=== PATIENT | female | born 1960 | race American Indian/Alaskan Native ===

== ENCOUNTER 2021-10-02 09:35 | Emergency (ER) | payer MEDICAID, OTHER ==
[2021-10-02 10:55] LABS: CORONAVIRUS COVID-19 NAA POSITIVE (NEGATIVE)
== END 2021-10-02 10:59 | disposition home or self-care (01) ==
LOC: DL.ED 09:35
DX: Z53.21 Procedure and treatment not carried out due to patient leaving prior to being seen by health care provider (principal)
CPT/HCPCS: 0240U

== ENCOUNTER 2024-02-16 08:25 | Day surgery (SDC) | payer MEDICAID, OTHER ==
[2024-02-16] MEDS: Lactated Ringers 1,000 ML IV SCH (09:05)
[2024-02-16] MEDS ORDERED: Betamethasone Acetate/Betamethasone Sod Phosphate 6 MG/1 ML MDV ONE (09:14)
[2024-02-16] MEDS ORDERED: Lidocaine 1% 30 ML SDV ONE (09:14)
[2024-02-16] MEDS ORDERED: Bupivacaine 0.5% 30 ML SDV ONE (09:14)
[2024-02-16] MEDS: ceFAZolin 2 GM Vial IVPUSH ONE (09:44)
[2024-02-16] MEDS: Lidocaine 1% 30 ML SDV INJECT ONE (10:13)
[2024-02-16] MEDS: Betamethasone Acetate/Betamethasone Sod Phosphate 6 MG/1 ML MDV ONE (10:13)
[2024-02-16] MEDS: Bupivacaine 0.5% 30 ML SDV INJECT ONE ×2 (10:13)
[2024-02-16] MEDS ORDERED: Non-Formulary Medication 1 Each (Cholecalciferol (Vitamin D3) [Vitamin D3] 5,000 UNIT Tabl PO SCH (12:00)
[2024-02-16] MEDS ORDERED: Loratadine 10 MG Tab PO SCH (12:15)
[2024-02-17] MEDS ORDERED: Aspirin 81 MG Tab.EC PO SCH (09:00)
== END 2024-02-16 12:55 | disposition home or self-care (01) ==
LOC: DL.SDS 08:25
PROVIDERS: ATTEND Podiatrist Foot & Ankle Surgery
DX: M20.12 Hallux valgus (acquired), left foot (principal); M21.612 Bunion of left foot; M19.072 Primary osteoarthritis, left ankle and foot; I10 Essential (primary) hypertension; K21.9 Gastro-esophageal reflux disease without esophagitis; E11.9 Type 2 diabetes mellitus without complications; E66.9 Obesity, unspecified; Z79.82 Long term (current) use of aspirin; Z79.84 Long term (current) use of oral hypoglycemic drugs; Z79.899 Other long term (current) drug therapy
CPT/HCPCS: 20605; 28296; C1713; J0665; J0690; J0702; J7120; 76000; J3490